=== PATIENT | female | born 1990 | race Two or more races ===

== ENCOUNTER 2017-09-02 18:57 | Emergency (ER) | payer MEDICAID ==
[~2017-09-02] VITALS: Ht 157.5 cm; Wt 81.6 kg
[2017-09-02 19:07] VITALS: BP 140/92
[2017-09-02] MEDS ORDERED: ALBUTEROL FS 2.5 MG/3 ML VIAL.NEB ONE (19:24)
--- NOTE | 2017-09-02 19:28 | NUR ---
RT AT BEDSIDE FOR HHN TX.
[2017-09-02] MEDS ORDERED: ALBUTEROL FS 2.5 MG/3 ML VIAL.NEB CONTNEB ONE (19:30)
--- NOTE | 2017-09-02 19:30 | NUR ---
[employer] MAINTENANCE AT BEDSIDE FOR CXR.
[2017-09-02] MEDS ORDERED: DEXAMETHASONE SOD PHOSPHATE 4 MG/ML VIAL IM ONE (21:00)
== END 2017-09-02 20:50 | disposition home or self-care (01) ==
LOC: ER 19:03
DX: J06.9 Acute upper respiratory infection, unspecified (principal)
CPT/HCPCS: 71045-TC; A4606; Z7610